=== PATIENT | female | born 1975 | race Caucasian/White ===

== ENCOUNTER 2025-03-08 06:27 | Day surgery (SDC) | payer OTHER ==
[~2025-03-08] VITALS: Ht 162.6 cm; Wt 66.0 kg
[2025-03-08] VITALS (14 sets, daily range): BP systolic 96–138; BP diastolic 61–94; PULSE 88–102; RESP 10–18; TEMP 97.4; O2SAT 96–100
[~2025-03-08 06:27] MED LIST: ALBU18HF2 INH; BACL10TA2 PO; BUSP10TA3 PO; GABA-1555 PO; HYDR-3968 PO; IBUP-1985 PO; LOSA1TAB39 PO; VENL150C58 PO; famotidine 20mg tablet PO ONE; ringers solution, lacted 1,000 ML IV SCH
[2025-03-08] MEDS: ceFAZolin 2gm in dextrose, iso 50 ML IV ONE (06:48)
[2025-03-08] MEDS ORDERED: vancomycin 1,000mg inj ONE (07:05)
[2025-03-08] MEDS ORDERED: BUPIVAcaine 2.5mg/ml inj 50ml vial (contains preservative) ONE (07:06)
[2025-03-08] MEDS ORDERED: bacitracin 15gm ointment TP ONE (07:16)
[2025-03-08] MEDS ORDERED: dexmedetomidine 200mcg/2ml inj. IV ONE (07:42)
[2025-03-08] MEDS ORDERED: BUPIVAcaine/PF 2.5mg/ml (0.25%) 10ml vial ONE (07:43)
[2025-03-08] MEDS ORDERED: BUPIVACAINE liposomal/PF 13.3 MG/ML 10mL vial IM ONE (07:47)
[2025-03-08] MEDS ORDERED: midazolam 1 mg/ML 2ml injection ONE (07:56)
[2025-03-08] MEDS ORDERED: fentaNYL/PF 50MCG/1 ML 2ML syringe ONE ×2 (07:56→09:23)
[2025-03-08] MEDS ORDERED: LIDOcaine 2% (20mg/ml) 5ml vial ONE (07:57)
[2025-03-08] MEDS ORDERED: propofol inj 20 ML IV ONE (07:57)
[2025-03-08] MEDS ORDERED: ROPIVAcaine 0.5% (5mg/ml) 30ml vial ONE (07:58)
[2025-03-08] MEDS ORDERED: acetaminophen 1,000mg/100ml IV 100 ML IV ONE (07:58)
[2025-03-08] MEDS ORDERED: ondansetron/PF 4mg/2ml inj ONE (07:59)
[2025-03-08] MEDS ORDERED: sevoflurane 250ml liquid IH ONE (09:28)
[2025-03-08] MEDS ORDERED: ondansetron/PF 4mg/2ml inj IV PRN (10:20)
[2025-03-08] MEDS ORDERED: morphine 4 MG/ML inj SYRINge IV PRN (10:20)
[2025-03-08] MEDS ORDERED: fentaNYL/PF 50MCG/1 ML 2ML syringe IV PRN ×2 (10:20)
[2025-03-08] MEDS ORDERED: hydrALAZINE 20mg/ml inj. IV PRN (10:20)
[2025-03-08] MEDS ORDERED: morphine 2 MG/ML inj. syringe IV PRN (10:20)
[2025-03-08] MEDS ORDERED: ROPIVAcaine 0.2% (10 MG/5 ML) BOLUS INJECTION POPLITEAL PRN (10:20)
[2025-03-08] MEDS ORDERED: labetalol 20mg/4ml (5mg/ml) syringe IV PRN (10:20)
--- NOTE | 2025-03-08 10:38 | ANESTHESIA RECORDS ---
Nerve Block Providers to CC CC: FEDERICO SHETH DPM ~ Diagnosis: Nerve Block requested by: FEDERICO SHETH DPM Neuraxial/Peripheral Nerve Block requested for Post-operative analgesia by Physician above DIAGNOSIS: Post-operative pain. (Body Area) Shoulder: [ ] Arm: [ ] Hand: [ ] Hip: [ ] Knee: [ ] Ankle: [ ] Foot: [ ] Leg: [ ] Abdomen: [ ] Other: [ ] Post-operative pain expected to be/is inadequately managed by oral or IV medicines. Regional anesthetic expected to facilitate rehabilitation and/or discharge from facility. Other:[ _] Procedure Performed: Femoral / Saphenous: Right Popliteal Lateral: Right Time out Done?: Yes Time of Time out: 08:40 Procedure Details: PROCEDURE DETAILS: Risks, benefits and alternatives explained Informed consent obtained, and patient wishes to proceed Conscious sedation with indicated monitors Patient positioned, pertinent anatomy defined, sterile technique used Needle used: [ ] 3 1/8 inch Stimuplex Ultra 22ga [X ] 4 inch Stimuplex Ultra 20ga for adductor canal block [ ] 6 inch Stimuplex Ultra 20ga [ ] 6 inch, Quikbloc over the needle catheter set 20ga [X ] 4 inch Quikbloc over the needle catheter set 20ga for sciatic nerve block [ ]Other: [ ] Loss of twitch @ [_0.5 ]mA [X ] Single Injection for adductor canal block [ X] Catheter for sciatic nerve block Ultrasound Guidance Used: [X ] Yes [ ] No Attempts:[__1,1 ] Medicines injected: [ ]Clonidine Amt:[ ] [ X ]Dexamethasone Amt:[ 2mg ] [ X ]Ropivacaine Amt:[__0.5% 30 c.c ] [ X ]Bupivacaine Amt:[0.25% 20 c.c ] [ ]Lidocaine Amt:[ ] [ X ]Exparel 1.33%:[___10 c.c ] [ ]Epinephrine Amt[ ] [ ]Other: [ ] Intermittent aspiration during local anesthetic administration No symptoms of intraneural or intravenous injection Patient tolerated procedure well Comments Right sciatic nerve block catheter. Right popliteal area of posterior thighis examined with Ultrasound and Popliteal vessels,Scatic nerve bundles are identified. Catheter over needle is placed near the nerve bundle.Upon electrical stimulation foot contractions noted. Ropivacaine decadron mix is injected. spread is noted. Needle is removed,catheter is secured. Sterile dressings applied. Ultrasound images of the needle psition is captured. documented. On Q pump is ordered. Rt Adductor canal single shot block: Right mid medial thigh is examined and Adductor canal and vessles in the canal are identified. Needle is placed in the canal. Local mix of bupivacaine+ exparell is injected. spread is noted. Ultras ound image is captured and documented. RERE VALLE MD March 08, 2025 10:38
[2025-03-08] MEDS ORDERED: labetalol 20mg/4ml (5mg/ml) syringe IV ONE (10:56)
[2025-03-08] MEDS: ringers solution, lacted 1,000 ML IV SCH (12:41)
[2025-03-08] MEDS: ROPIVAcaine 0.2%/PF PUMP/bolus 545 ML POPLITEAL SCH (12:42)
--- NOTE | 2025-03-08 15:07 | OPERATIVE REPORT ---
DATE OF SURGERY: 03/08/2025 DICTATING PHYSICIAN: Sawyer Thomas DPM SURGEON: Sawyer Thomas DPM PREOPERATIVE DIAGNOSIS: Painful posttraumatic arthritis of right ankle. POSTOPERATIVE DIAGNOSIS: Painful posttraumatic arthritis of right ankle. PROCEDURE: Consisted of total ankle replacement, right ankle, utilizing the [place] 28 stemmed total ankle replacement system. COMPLICATIONS: None. ESTIMATED BLOOD LOSS: Less than 10 mL. ANESTHESIA: General with popliteal and saphenous block. INDICATIONS FOR SURGERY: Consisted of the following: The patient has had significant posttraumatic pain following her ankle fracture, which was several years ago. Open reduction internal fixation was performed. The patient states that she never felt the same afterwards with continual pain when ambulating, not alleviated or relieved with lifestyle modifications or bracing or orthotics. DESCRIPTION OF PROCEDURE: A tourniquet was used with the tourniquet inflated to 250 mmHg. It was deflated at 2 hours' time. There were no complications during the surgery. A Federico splint was applied to the right lower extremity at the end of the case. Capillary refill time was noted to be instantaneous upon completion of the procedure. The patient was given 2 g of Ancef IV 30 minutes prior to skin incision. 1 g of vancomycin powder was doused into the operative site, surgical deep site at the conclusion of the case. The procedure is as follows: The patient was escorted to the operating room suite, where she was prepared and draped in the usual sterile technique. An additional prep was done by me as the surgeon. The [employer] hoods were used for all surgical personnel. Attention was directed towards placing the patient in the supine position. The tourniquet was inflated to 250 mmHg after exsanguinating the right lower extremity. An anterior incisional approach was made. The incision was about 120 mm in length. Neurovascular structures were protected. The ankle joint had an arthrotomy. Exposure of the ankle joint was completed. Visual inspection of the chondral surfaces, of the articular surfaces of the tibiotalar joint showed posttraumatic changes at the joint level. These changes were substantial and significant, particularly over the lateral aspect of the tibiotalar joint. Utilizing the technique and the surgical steps as outlined in the surgeon's manual for [place] 28 total ankle system, a #2 tibial tray regular with a #1 talar component and a 7 mm polyethylene component was inserted into the ankle joint. Cement was used as indicated in the surgeon's manual for both the tibial and the talar components. C-arm was used throughout the case. C-arm confirmed appropriate alignment of the tibiotalar joint and the components. The passive range of motion was noted to be appropriate intraoperatively. There were no complications during the surgery. Tissues were closed in layers. Any bleeding vessels were bovied. The patient had capillary refill time, which was instantaneous from toes 1 through 5. The patient was then escorted to PACU with the appropriate postoperative instructions. Sawyer Thomas DPM TID: [id number] RECEIPT: [id number] IZZY TROTTER
== END 2025-03-08 14:55 | disposition home or self-care (01) ==
LOC: PAS 06:27
PROVIDERS: ATTEND Podiatrist Foot & Ankle Surgery
DX: M19.171 Post-traumatic osteoarthritis, right ankle and foot (principal); I10 Essential (primary) hypertension; G89.29 Other chronic pain; K21.9 Gastro-esophageal reflux disease without esophagitis; M19.90 Unspecified osteoarthritis, unspecified site; F41.9 Anxiety disorder, unspecified; F32.A Depression, unspecified; Z90.49 Acquired absence of other specified parts of digestive tract; Z79.899 Other long term (current) drug therapy; Z98.890 Other specified postprocedural states; Z87.891 Personal history of nicotine dependence; G89.18 Other acute postprocedural pain
CPT/HCPCS: 27702; 64445; 64447; 73610; 82948; A6222; C1713; C1776; J0131; J0666; J1100; J2003; J2250; J2405; J2704; J2795; J3010; J3370; J3490; J7030; J7120; Z7506; Z7508; Z7512; 76000; A4618; A6253; A6446; A6449; A6455; A7000